=== PATIENT | male | born 1990 | race Caucasian/White ===

== ENCOUNTER → 2018-04-03 | Emergency (ER) | payer BC ==
[~2018-04-03] VITALS: Ht 167.6 cm; Wt 70.3 kg
== END | disposition home or self-care (01) ==
LOC: ER 12:22
DX: S01.02XA Laceration with foreign body of scalp, initial encounter (principal); W45.8XXA Other foreign body or object entering through skin, initial encounter; Y93.89 Activity, other specified; Y92.89 Other specified places as the place of occurrence of the external cause; Y99.8 Other external cause status